=== PATIENT | male | born 1960 | race Caucasian/White ===

== ENCOUNTER 2019-05-12 05:37 | Emergency (ER) | payer OTHER ==
[~2019-05-12] VITALS: Ht 188 cm; Wt 111.5 kg
[2019-05-12 05:38] VITALS: BP 174/100
== END 2019-05-12 09:07 | disposition home or self-care (01) ==
LOC: ED 08:56
DX: S02.82XA Fracture of other specified skull and facial bones, left side, initial encounter for closed fracture (principal); S02.81XA Fracture of other specified skull and facial bones, right side, initial encounter for closed fracture; S02.2XXA Fracture of nasal bones, initial encounter for closed fracture; S20.211A Contusion of right front wall of thorax, initial encounter; S01.111A Laceration without foreign body of right eyelid and periocular area, initial encounter; H11.31 Conjunctival hemorrhage, right eye; Y04.0XXA Assault by unarmed brawl or fight, initial encounter; Y93.89 Activity, other specified; Y92.410 Unspecified street and highway as the place of occurrence of the external cause; Y99.8 Other external cause status
CPT/HCPCS: 12052; 70450; 70486; 71046; 72125; 90471; 90715; 99284